=== PATIENT | male | born 1930 | race American Indian/Alaskan Native ===

== ENCOUNTER 2016-10-08 16:30 | Emergency (ER) | payer MEDICARE ==
[2016-10-08 16:57] VITALS: BP 153/90
--- NOTE | 2016-10-08 18:22 | Emergency Department Report ---
Chief Complaint: Syncope Stated Complaint: CHEST PAIN Time Seen by Provider: 10/08/16 18:18 - HPI History of Present Illness: Patient's sister witnessed him with a syncope episode which resulted in him falling on the floor. Patient c/o chest wall pain with difficulty breathing - ROS Review of Systems: all other systems are unremarkable except for documentation in HPI - Exam Vital Signs: Vital Signs 10/08/16 16:50 Temperature 97.6 F Pulse Rate 60 Respiratory 20 Rate Blood Pressure 153/90 O2 Sat by Pulse 100 Oximetry Physical Exam: Gen: well developed and nourished, NAD Resp: even and unlabored, lungs CTA ventura, no wheezes, rales or rhonchi MSE screening note: Focused history and physical exam performed. Due to findings the following was ordered: laboratory and radiology studies ordered ED Disposition for MSE Condition: Stable
[2016-10-08 19:11] LABS: Basophils % (Auto) 0.2 % (0.0-1.8); Eosinophils % (Auto) 0.9 % (0.0-4.3); Hematocrit 40.3 % (35.5-45.6); Hemoglobin 12.9 gm/dl (11.8-15.2); Mean Corpuscular HGB Conc 32 % (32-34); Mean Corpuscular Hemoglobin 29 pg (28-32); Mean Corpuscular Volume 89 fl (84-94); Platelet Count 176 K/mm3 (140-440); Red Blood Count 4.52 M/mm3 (3.65-5.03); Red Cell Distribution Width 14.1 % (13.2-15.2); White Blood Count 12.6 K/mm3 (4.5-11.0)
[2016-10-08 19:46] LABS: Creatine Kinase MB 2.7 ng/mL (0.0-4.0)
[2016-10-08 19:48] LABS: Alanine Aminotransferase 20 units/L (7-56); Albumin 4.5 g/dL (3.9-5); Albumin/Globulin Ratio 1.3 %; Alkaline Phosphatase 106 units/L (35-129); BUN/Creatinine Ratio 15.55; Bilirubin,Total 1.2 mg/dL (0.1-1.2); Blood Urea Nitrogen 14 mg/dL (9-20); Calcium 9.5 mg/dL (8.4-10.2); Carbon Dioxide 27 mmol/L (22-30); Chloride 92.3 mmol/L (98-107); Creatine Kinase 171 units/L (55-170); Glucose 153 mg/dL (75-100); Potassium 3.9 mmol/L (3.6-5.0); Sodium 133 mmol/L (137-145)
[2016-10-08 19:50] LABS: Anion Gap 18 mmol/L
--- NOTE | 2016-10-09 08:15 | XRay Report ---
BILATERAL RIBS THREE VIEWS: 10/08/16 16:30:00 CLINICAL: Fall and bilateral chest wall pain. FINDINGS: No rib fracture or rib lesion. The lungs are normally expanded. No pneumothorax. Normal heart and pulmonary vasculature. IMPRESSION: Negative chest. No rib fracture.
--- NOTE | 2016-10-13 13:49 | ED Elopement Review ---
ED Pt Elopement review - Results review Lab results: Laboratory Tests 10/08/16 10/08/16 10/08/16 16:48 18:58 18:58 WBC 12.6 H RBC 4.52 Hgb 12.9 Hct 40.3 MCV 89 MCH 29 MCHC 32 RDW 14.1 Plt Count 176 Lymph % (Auto) 11.7 L [place] % (Auto) 5.6 Eos % (Auto) 0.9 Baso % (Auto) 0.2 Lymph # 1.5 [place] # 0.7 Eos # 0.1 Baso # 0.0 Seg Neutrophils % 81.6 H Seg Neutrophils # 10.3 H Sodium 133 L Potassium 3.9 Chloride 92.3 L Carbon Dioxide 27 Anion Gap 18 BUN 14 Creatinine 0.9 Estimated GFR > 60 BUN/Creatinine Ratio 15.55 Glucose 153 H POC Glucose 143 H Calcium 9.5 Magnesium 2.0 Total Bilirubin 1.2 AST 27 ALT 20 Alkaline Phosphatase 106 Total Creatine Kinase 171 H CK-MB (CK-2) 2.7 CK-MB (CK-2) Rel Index 1.5 Troponin T < 0.010 Total Protein 8.0 Albumin 4.5 Albumin/Globulin Ratio 1.3 - Call Back decision Pt Call Back Decision: No action required
== END 2016-10-09 | disposition left against medical advice (07) ==
LOC: ED 16:30
DX: R07.89 Other chest pain (principal); R06.00 Dyspnea, unspecified; Z53.21 Procedure and treatment not carried out due to patient leaving prior to being seen by health care provider
CPT/HCPCS: 36415; 71110; 80053; 82550; 82553; 82962; 83735; 84484; 85025; 93005; 93010